=== PATIENT | female | born 1950 | race Caucasian/White ===

== ENCOUNTER 2017-06-08 09:51 | Emergency (ER) | payer OTHER ==
[~2017-06-08] VITALS: Ht 157.5 cm; Wt 66.0 kg
[2017-06-08 09:53] VITALS: Ht 157.5 cm; Wt 66.0 kg
--- NOTE | 2017-06-08 10:14 | ERA ---
ER Documentation Chief Complaint Date/Time DATE: 06/08/17 TIME: 10:11 Chief Complaint hearing loss from left ear x 3 days HPI This is a 66-year-old female with a chief complaint of total hearing loss 3 days. Patient has not experienced for denies any pain. No medical conditions or medications. Patient denies history of trauma, tinnitus, headache, dizziness , kevin-auricular pain, or neck stiffness. Vaccination status is up to date. No recent travel. Patient has no other complaints and describes no other associated manifestations. Nursing notes have been reviewed and are consistent with history given. ROS All systems reviewed and are negative except as per history of present illness. Allergies Allergies: Coded Allergies: No Known Allergy (Unverified , 06/08/17) PMhx/Soc Medical and Surgical Hx: pt denies Medical Hx, pt denies Surgical Hx Hx Alcohol Use: No Hx Substance Use: No Hx Tobacco Use: No Smoking Status: Never smoker Physical Exam Vitals Vital Signs Date Time Temp Pulse Resp B/P Pulse Ox O2 Delivery O2 Flow Rate FiO2 06/08/17 09:53 97.3 76 18 131/60 97 Physical Exam Const: Well-appearing happy 66-year-old female no acute distress Head: Atraumatic Eyes: Normal Conjunctiva ENT: Cerumen impaction in ears bilaterally. Normal External Ears, Nose and Mouth. Neck: Full range of motion..~ No meningismus. Resp: Clear to auscultation bilaterally Cardio: Regular rate and rhythm, no murmurs Abd: Soft, non tender, non distended. Normal bowel sounds Skin: No petechiae or rashes Back: No midline or flank tenderness Ext: No cyanosis, or edema Neur: Awake and alert Psych: Normal Mood and Affect Results 24 hrs Current Medications Medications (Trade) Dose Ordered Sig/Hal Route PRN Reason Start Time Stop Time Status Last Admin Dose Admin Carbamide Peroxide (Debrox Otic) 1 drop ONCE ONCE BOTH EARS 06/08/17 10:30 06/08/17 10:31 DC 06/08/17 10:23 Procedures/MDM This is a 66-year-old female presenting with acute left-sided hearing loss 3 days as described in history and physical examination. There was cerumen on physical examination obstructing the visualization of the tympanic membrane so irrigation was ordered as well as Debrox. Patient eloped after ear was cleaned. Most likely diagnosis with cerumen impaction. Departure Diagnosis: Primary Impression: Impacted cerumen of left ear Condition: Stable Additional Instructions: Patient eloped after ear was cleaned. OBEY FREITAS PA-C Jun 08, 2017 10:14
[2017-06-08] MEDS ORDERED: CARBAMIDE PEROXIDE 6.5% 15ML OTIC BOTH EARS ONE (10:30)
== END 2017-06-08 12:02 | disposition left against medical advice (07) ==
LOC: FTE 09:51
DX: H61.22 Impacted cerumen, left ear (principal)
CPT/HCPCS: 69209; Z7502; Z7610

== ENCOUNTER 2017-10-07 07:12 | Day surgery (SDC) | payer OTHER ==
[~2017-10-07] VITALS: Ht 157.5 cm; Wt 66.3 kg
[2017-10-07 07:53] VITALS: Ht 157.5 cm; Wt 66.3 kg
[2017-10-07] MEDS ORDERED: LEVO25TA53 PO (08:08)
--- NOTE | 2017-10-07 09:11 | OPPN ---
Date/Time of Note Date/Time of Note DATE: 10/07/17 TIME: 09:09 Operative Report Preoperative Diagnosis Screening Postoperative Diagnosis Poor prep Internal hemorrhoids No colon neoplasm is identified Operation/Procedure Performed Colonoscopy Surgeon see signature line general assistant None Anesthesia: moderate sedation Estimated blood loss: none Transfusion Required none Specimen None Grafts/Implants none Complications none SAUL PADGETT MD Oct 07, 2017 09:11
[2017-10-07] MEDS ORDERED: MIDAZOLAM 1 MG/ML 2 ML INJ ONE (09:33)
[2017-10-07] MEDS ORDERED: FENTAnyl 50 MCG/ML VIAL ONE (09:33)
[2017-10-07 09:38] VITALS: BP 119/68; PULSE 60; RESP 16
--- NOTE | 2017-10-07 12:23 | GILP ---
DATE OF PROCEDURE: NAME OF PROCEDURE: Colonoscopy. SURGEON: Saul Tillman MD PREOPERATIVE DIAGNOSIS: Screening colonoscopy. POSTOPERATIVE DIAGNOSES 1. Colonoscopy all the way to the cecum. 2. Poor prep making the exam suboptimal. 3. Internal hemorrhoids. 4. No gross neoplasm was identified. INDICATION FOR THE PROCEDURE: Ms. Sabina Gates is a 66-year-old female patient who was scheduled f or screening colonoscopy. The procedure and possible complications were well explained to the patient. The patient understood and consented to the procedure. DESCRIPTION OF PROCEDURE: Under the influence of fentanyl and Versed, the colonoscope was carefully introduced in the rectum and under direct vision it was advanced all the way to the cecum. FINDINGS: The patient had poor prep making the exam suboptimal. She was noted to have internal hem orrhoids. No gross neoplasm was identified. She tolerated the procedure very well and there was no complication from the procedure. At the end of the procedures, she was awake with stable vital signs and she was discharged home to the care of her family. IMPRESSION: Please see postoperative diagnoses. PLAN: Because of the poor prep and suboptimal nature of the examination, would recommend repeat col onoscopy with better preparation within 2 years. Dictated By: SAUL RODRIGUEZ/KEN Conf#: [id number] DID#: [id number]
== END 2017-10-07 16:53 | disposition home or self-care (01) ==
LOC: GIL 07:12
PROVIDERS: ATTEND Internal Medicine Gastroenterology
DX: Z12.11 Encounter for screening for malignant neoplasm of colon (principal); K64.8 Other hemorrhoids
CPT/HCPCS: 45378; J2250; J3010; Z7610